=== PATIENT | male | born 1975 | race Two or more races ===

== ENCOUNTER 2024-02-25 10:25 | Emergency (ER) | payer MEDICAID ==
[~2024-02-25] VITALS: Ht 162.6 cm; Wt 62.3 kg
[2024-02-25 10:35] VITALS: BP 118/76; PULSE 94; RESP 18; TEMP 98.5; O2SAT 100
[2024-02-25] MEDS: LIDOCAINE 1% 10 ML VIAL SQ ONE (12:31)
[2024-02-25] MEDS: DOXYCYCLINE HYCLATE 100 MG TABLET PO ONE (12:59)
[2024-02-25] MEDS ORDERED: DOXY-354 PO (13:03)
== END 2024-02-25 13:25 | disposition home or self-care (01) ==
LOC: EMS 10:37
DX: L05.01 Pilonidal cyst with abscess (principal)
CPT/HCPCS: 10080; 99283; J3490

== ENCOUNTER 2024-02-28 16:00 | Emergency (ER) | payer MEDICAID ==
[~2024-02-28] VITALS: Ht 167.6 cm; Wt 81.8 kg
[~2024-02-28 16:00] MED LIST: DOXY-354 PO
[2024-02-28 16:13] VITALS: TEMP 98.6
[2024-02-28 16:45] VITALS: BP 146/91; PULSE 70; RESP 16; O2SAT 100
[2024-02-28] MEDS ORDERED: SULF-261 PO (16:55)
[2024-02-28] MEDS ORDERED: IBUP-1554 PO (16:55)
[2024-02-28] MEDS ORDERED: CEPH-558 PO (16:55)
== END 2024-02-28 17:03 | disposition home or self-care (01) ==
LOC: EMS 16:00
DX: K61.1 Rectal abscess (principal)
CPT/HCPCS: 46040; 99283; 99284

== ENCOUNTER 2024-07-27 02:21 | Emergency (ER) | payer SELFPAY ==
[~2024-07-27] VITALS: Ht 162.6 cm; Wt 62.7 kg
[~2024-07-27 02:21] MED LIST changes: +CEPH-558 PO; +IBUP-1554 PO; +SULF-261 PO
[2024-07-27 02:30] VITALS: BP 133/90; PULSE 86; RESP 16; TEMP 99.1; O2SAT 98
== END 2024-07-27 03:14 | disposition left against medical advice (07) ==
LOC: EMS 02:36
DX: R10.9 Unspecified abdominal pain (principal); Z53.21 Procedure and treatment not carried out due to patient leaving prior to being seen by health care provider